=== PATIENT | female | born 1985 | race Caucasian/White ===

== ENCOUNTER → 2018-05-28 11:09 | Outpatient (CLI) | payer BC, SELFPAY | PROVIDERS: PCP Nurse Practitioner; Visit Provider Nurse Practitioner | DX: R00.2 Palpitations (principal) | CPT/HCPCS: 93225; 93226 ==

== ENCOUNTER → 2020-10-16 15:37 | Outpatient (CLI) | payer BC, SELFPAY ==
[2020-10-18 10:29] LABS: Covid-19 Nasal PCR Sendout P&C Negative
== END ==
PROVIDERS: PCP Nurse Practitioner Family; Visit Provider Nurse Practitioner Family
DX: Z03.818 Encounter for observation for suspected exposure to other biological agents ruled out (principal)
CPT/HCPCS: U0004

== ENCOUNTER → 2021-02-05 09:22 | Outpatient (CLI) | payer BC, SELFPAY ==
--- NOTE | 2021-02-05 09:27 | XR_ITS ---
PROCEDURE: XR KNEE LT 3V CLINICAL INDICATION: LT ANTERIOR KNEE PAIN COMPARISON: No exams were available for comparison FINDINGS: No fracture or dislocation. No lytic or blastic change. There is normal mineralization. The joint spaces are well-preserved. No significant degenerative/arthritic changes. No erosive changes evident. Other findings:There may be a small suprapatellar effusion. IMPRESSION: Possible small knee joint effusion otherwise negative Dictated by: Damián Stroud MD 02/05/2021 17:46 Damián Stroud MD in [place] 02/05/2021 17:46
== END ==
PROVIDERS: PCP Family Medicine; Visit Provider Nurse Practitioner Family
DX: M25.562 Pain in left knee (principal)
CPT/HCPCS: 73562